=== PATIENT | female | born 1950 | race African-American/Black ===

== ENCOUNTER 2016-12-24 16:39 | Inpatient (IN) | payer MEDICARE ==
[~2016-12-24] VITALS: Ht 170.2 cm; Wt 48.5 kg
[2016-12-24] MEDS ORDERED: SODIUM CHLORIDE 0.9% 1000ML BAG (SEPSIS BOLUS) IV ONE (17:15)
[2016-12-24 17:40] LABS: BASOPHILS % 0.9 % (0.0-2.0); HEMATOCRIT. 29.3 % (36.0-48.0); HEMOGLOBIN. 9.8 g/dL (12.0-16.0); MEAN CORPUSCULAR HEMOGLOBIN 33.8 pg (28.0-32.0); MEAN CORPUSCULAR VOLUME 100.9 fL (81.0-99.0); MEAN PLATELET VOLUME 9.7 fl (7.4-10.4); MONOCYTES % 10.1 % (2.0-8.0); PLATELET 134 x1000/uL (130-400); RED CELL DISTRIBUTION WIDTH 16.6 % (11.6-14.6)
[2016-12-24 17:41] LABS: INR 1.5; PROTHROMBIN TIME 15.3 sec
[2016-12-24 17:49] LABS: CARBON DIOXIDE 31 mEq/L (21-32); CHLORIDE 92 mEq/L (98-107); CREATINE KINASE 49 IU/L (26-192); TROPONIN I < 0.02 ng/mL (0.00-0.04)
[2016-12-24 17:52] LABS: AMMONIA 51 uMol/L (<32)
[2016-12-24 18:00] LABS: CARBAMAZEPINE < 0.5 ug/mL (4-12); PHENOBARBITAL < 2.1 ug/mL (15.0-40.0); VALPROIC ACID < 3.0 ug/mL (50-100)
[2016-12-24 18:04] LABS: PHENYTOIN < 0.4 ug/mL (10-20)
[2016-12-24 18:14] LABS: CLARITY URINE CLEAR (CLEAR); COLOR URINE YELLOW (YELLOW); GLUCOSE URINE 3+ (NEGATIVE); KETONES URINE NEGATIVE (NEGATIVE); LEUKOCYTE ESTERASE URINE TRACE (NEGATIVE); NITRITE URINE NEGATIVE (NEGATIVE); OCCULT BLOOD URINE 1+ (NEGATIVE); PROTEIN URINE NEGATIVE (NEGATIVE); SPECIFIC GRAVITY URINE 1.025 (1.005-1.030); UROBILINOGEN URINE 0.2 E.U./dL (0.2-1.0)
[2016-12-24] MEDS ORDERED: POTASSIUM CHLORIDE 20MEQ TABLET SR PO NR (18:15)
[2016-12-24 18:20] LABS: BETA HYDROXYBUTYRATE 0.1 mMol/L (0.0-0.3)
[2016-12-24] MEDS ORDERED: INSULIN REGULAR (HUMULIN R) 300UNITS/3ML SUBCUT ONE (18:30)
[2016-12-24] MEDS ORDERED: MAGNESIUM 1 G PREMIX 100 ML IV ONE (18:45)
[2016-12-24 22:15] VITALS: BP 108/68
[2016-12-24] MEDS ORDERED: SPIR25TA4 PO (23:09)
[2016-12-24] MEDS ORDERED: CIPR-213 PO (23:09)
[2016-12-24] MEDS ORDERED: FOLI-43 PO (23:09)
[2016-12-24] MEDS ORDERED: [UNRECOGNIZED DRUG - OTHER] PO (23:09)
[2016-12-24] MEDS ORDERED: FURO20TA4 PO (23:09)
[2016-12-24] MEDS ORDERED: POTA10TA15 PO (23:09)
[2016-12-24] MEDS ORDERED: SODIUM CHLORIDE 0.9% 1,000 ML IV SCH (23:57)
[2016-12-25] VITALS (7 sets, daily range): BP systolic 96–119; BP diastolic 53–76
[2016-12-25] MEDS ORDERED: POTASSIUM CHLORIDE 20MEQ TABLET SR PO ONE
[2016-12-25] MEDS ORDERED: ACETAMINOPHEN 325MG TABLET PO PRN
[2016-12-25] MEDS ORDERED: ONDANSETRON HCL 4MG/2ML VIAL IV PRN
[2016-12-25] MEDS ORDERED: CLONIDINE 0.1MG TABLET PO PRN
[2016-12-25] MEDS ORDERED: DIPHENHYDRAMINE 50MG/ML VIAL IV PRN
[2016-12-25] MEDS ORDERED: DEXTROSE 50% WATER 50ML SYRINGE IV PRN (00:15)
[2016-12-25] MEDS ORDERED: MAGNESIUM 1 G PREMIX 100 ML IV NR (00:30)
[2016-12-25] MEDS: INSULIN DETEMIR UD 100 UNITS/ML SYR SUBCUT SCH ×2 (02:13→21:27)
[2016-12-25] MEDS: BLOOD SUGAR DIAGNOSTIC STRIP TEST SCH ×4 (07:20→21:25)
[2016-12-25] MEDS: INSULIN LISPRO 100 UNITS/ML SUBCUT SCH ×4 (08:27→21:00)
[2016-12-25] MEDS: ENOXAPARIN 30MG/0.3ML SYR SUBCUT SCH (08:28)
[2016-12-25 15:45] LABS: CHLORIDE 105 mEq/L (98-107)
[2016-12-25 15:49] LABS: CARBON DIOXIDE 24 mEq/L (21-32)
[2016-12-25] MEDS: MULTIVITAMINS,THER W-MINERALS TABLET PO SCH (17:00)
[2016-12-25] MEDS ORDERED: MAGNESIUM 4 G PREMIX 100 ML IV NR (21:00)
[2016-12-26] VITALS: BP 113/66
[2016-12-26 04:00] VITALS: BP 113/68
[2016-12-26] MEDS: BLOOD SUGAR DIAGNOSTIC STRIP TEST SCH ×3 (06:28→16:18)
[2016-12-26] MEDS ORDERED: GLIMEPIRIDE 2MG TABLET PO SCH (07:20)
[2016-12-26 08:00] VITALS: BP 96/49
[2016-12-26] MEDS: MULTIVITAMINS,THER W-MINERALS TABLET PO SCH (08:29)
[2016-12-26] MEDS: INSULIN LISPRO 100 UNITS/ML SUBCUT SCH ×3 (08:30→16:24)
[2016-12-26 08:31] LABS: CARBON DIOXIDE 25 mEq/L (21-32); CHLORIDE 104 mEq/L (98-107); PHOSPHORUS 2.7 mg/dL (2.5-4.9)
[2016-12-26] MEDS: ENOXAPARIN 30MG/0.3ML SYR SUBCUT SCH (08:31)
[2016-12-26 12:00] VITALS: BP 112/63
[2016-12-26 16:30] VITALS: BP 128/78
== END 2016-12-26 16:30 | disposition home or self-care (01) | DRG 100 ==
LOC: ER 16:39 → 6WST 18:55 → EDBEDREQ 19:01 → ENRESERV 20:19
PROVIDERS: ADMIT Family Medicine Adult Medicine; ATTEND Family Medicine Adult Medicine
DX: R56.9 Unspecified convulsions (principal); E43 Unspecified severe protein-calorie malnutrition; E87.1 Hypo-osmolality and hyponatremia; E11.65 Type 2 diabetes mellitus with hyperglycemia; E83.42 Hypomagnesemia; E86.0 Dehydration; K74.60 Unspecified cirrhosis of liver; Z85.528 Personal history of other malignant neoplasm of kidney; E87.6 Hypokalemia; Z83.3 Family history of diabetes mellitus
CPT/HCPCS: 36415; 70450; 71010; 80048; 80053; 80156; 80165; 80184; 80185; 81001; 82010; 82140; 82550; 82962; 83036; 83605; 83690; 83735; 84100; 84484; 85025; 85610; 87040; 87086; 93005; 93970; 96365; 96372; 99291; A6261; J1650; J1815; J3475; J7030; J7040; J7050